=== PATIENT | female | born 1970 | race Two or more races ===

== ENCOUNTER 2021-07-23 07:30 | Day surgery (SDC) | payer MEDICAID ==
[~2021-07-23] VITALS: Ht 162.6 cm; Wt 136.0 kg
[2021-07-23] MEDS ORDERED: fentaNYL/PF 50MCG/1 ML 2ML syringe ONE (07:36)
[2021-07-23] MEDS ORDERED: MIDAZolam 1 MG/ML 5ML VIAL ONE (07:36)
[2021-07-23] MEDS ORDERED: LIDOcaine Viscous 15ml cup ONE (07:36)
[2021-07-23 07:40] VITALS: BP 162/74
[2021-07-23] MEDS ORDERED: HYDR12.55 PO (08:00)
[2021-07-23] MEDS ORDERED: METF-438 PO (08:01)
[2021-07-23] MEDS ORDERED: LISI40TA13 PO (08:03)
[2021-07-23] MEDS ORDERED: IBUP-1984 PO (08:03)
[2021-07-23] MEDS ORDERED: GLIP5TAB13 PO (08:04)
[2021-07-23] MEDS ORDERED: INSU100I71 SQ (08:05)
[2021-07-23] MEDS ORDERED: AMLO10TA PO (08:06)
[2021-07-23] MEDS ORDERED: ALBU6.7H9 INH (08:07)
[2021-07-23 09:28] VITALS: BP 130/57
[2021-07-23 09:38] VITALS: BP 139/77
[2021-07-23 09:48] VITALS: BP 149/67
[2021-07-23 09:58] VITALS: BP 154/63
== END 2021-07-23 10:28 | disposition home or self-care (01) ==
LOC: GI LAB 07:30
PROVIDERS: ATTEND Internal Medicine Gastroenterology
DX: Z08 Encounter for follow-up examination after completed treatment for malignant neoplasm (principal); K63.5 Polyp of colon; K62.1 Rectal polyp; K63.89 Other specified diseases of intestine; I10 Essential (primary) hypertension; E66.9 Obesity, unspecified; Z68.43 Body mass index [BMI] 50.0-59.9, adult; Z79.899 Other long term (current) drug therapy
CPT/HCPCS: 45385; 99152; 99153; C1773; J2250; J3010; J7040; Z7512; A4620

== ENCOUNTER 2021-08-12 10:51 | Day surgery (SDC) | payer MEDICAID ==
[~2021-08-12] VITALS: Ht 162.6 cm; Wt 136.0 kg
[~2021-08-12 10:51] MED LIST: ALBU6.7H9 INH; AMLO10TA PO; GLIP5TAB13 PO; HYDR12.55 PO; IBUP-1984 PO; INSU100I71 SQ; LISI40TA13 PO; METF-438 PO
[2021-08-12 11:00] VITALS: BP 164/77
[2021-08-12] MEDS ORDERED: fentaNYL/PF 50MCG/1 ML 2ML syringe ONE (11:02)
[2021-08-12] MEDS ORDERED: LIDOcaine Viscous 15ml cup ONE (11:03)
[2021-08-12] MEDS ORDERED: MIDAZolam 1 MG/ML 5ML VIAL ONE (11:03)
[2021-08-12 14:16] VITALS: BP 145/68
[2021-08-12 14:26] VITALS: BP 141/71
[2021-08-12 14:36] VITALS: BP 141/56
[2021-08-12 14:46] VITALS: BP 126/61
== END 2021-08-12 15:15 | disposition home or self-care (01) ==
LOC: GI LAB 10:51
PROVIDERS: ATTEND Internal Medicine Gastroenterology
DX: Z01.818 Encounter for other preprocedural examination (principal); K29.50 Unspecified chronic gastritis without bleeding; K21.00 Gastro-esophageal reflux disease with esophagitis, without bleeding; E66.01 Morbid (severe) obesity due to excess calories; Z68.43 Body mass index [BMI] 50.0-59.9, adult
CPT/HCPCS: 43239; 99152; J2250; J3010; J7030; Z7512; A4620

== ENCOUNTER 2021-09-15 10:55 | Day surgery (SDC) | payer MEDICAID ==
[2021-09-13 15:50] LABS: BASOPHILS # (AUTO) 0.1 X10'3 (0-0.2); BASOPHILS % (AUTO) 1.6 % (0-1); EOSINOPHILS # (AUTO) 0.6 X10'3 (0-0.9); HEMATOCRIT 41.5 % (35.0-45.0); HEMOGLOBIN 13.7 g/dl (12.0-16.0); LYMPHOCYTES # (AUTO) 3.1 X10'3 (1.1-4.8); LYMPHOCYTES % (AUTO) 43.2 % (21-51); MEAN CORPUSCULAR HEMOGLOBIN 27.2 PG (27.0-31.0); MEAN CORPUSCULAR HGB CONC 32.9 g/dL (33.0-36.5); MEAN CORPUSCULAR VOLUME 82.6 FL (78-98); MEAN PLATELET VOLUME 8.2 FL (7.4-10.4); MONOCYTES # (AUTO) 0.6 X10'3 (0-0.9); MONOCYTES % (AUTO) 8.9 % (2-12); NEUTROPHILS # (AUTO) 2.7 X10'3 (1.8-7.7); NEUTROPHILS % (AUTO) 38.3 % (42-75); PLATELET COUNT 218 X10'3 (140-440); RED BLOOD COUNT 5.03 X10'6 (4.20-5.60); RED CELL DISTRIBUTION WIDTH 14.8 % (11.5-14.5); WHITE BLOOD COUNT 7.1 X10'3 (4.5-11.0)
[2021-09-13 16:08] LABS: APTT 30 SECONDS (22-32)
[2021-09-13 16:13] LABS: ALANINE AMINOTRANSFERASE 66 U/L (12-78); ALBUMIN 3.4 G/DL (3.4-5.0); ALBUMIN/GLOBULIN RATIO 0.8 (1.1-1.5); ALKALINE PHOSPHATASE 160 IU/L (46-116); ANION GAP 7 (8-16); ASPARTATE AMINO TRANSFERASE 74 U/L (10-37); BILIRUBIN,TOTAL 0.6 MG/DL (0.1-1.0); BLOOD UREA NITROGEN 5 MG/DL (7-18); BUN/CREATININE RATIO 10.2 (6.6-38.0); CALCIUM 8.6 MG/DL (8.5-10.1); CHLORIDE 103 MMOL/L (99-107); CREATININE 0.49 MG/DL (0.40-0.90); GLUCOSE 218 MG/DL (70-104); POTASSIUM 3.8 MMOL/L (3.5-5.1); SODIUM 137 MMOL/L (135-145); TOTAL CARBON DIOXIDE 26.9 MMOL/L (24-32); TOTAL PROTEIN 7.8 G/DL (6.4-8.2); eGFR > 90 ML/MIN
[2021-09-15] VITALS (11 sets, daily range): BP systolic 109–193; BP diastolic 56–86
[~2021-09-15] VITALS: Ht 162.6 cm; Wt 134.4 kg
[2021-09-15] MEDS ORDERED: normal saline 1,000 ML IV SCH (11:15)
[2021-09-15] MEDS ORDERED: nitroGLYCERIN 0.4mg SUBLingual tab SL PRN ×2 (11:15→14:20)
[2021-09-15] MEDS ORDERED: LORazepam 0.5 MG tablet PO PRN (11:15)
[2021-09-15] MEDS ORDERED: diphenhydrAMINE 25mg capsule PO PRN (11:15)
[2021-09-15] MEDS ORDERED: INSU100I71 SUBCUT (12:08)
[2021-09-15] MEDS ORDERED: fentaNYL/PF 50MCG/1 ML 2ML syringe ONE (12:41)
[2021-09-15] MEDS ORDERED: iohexol 350MG/ML 100ml bottle IV ONE (12:41)
[2021-09-15] MEDS ORDERED: midazolam 1 mg/ML 2ml injection ONE (12:41)
[2021-09-15] MEDS ORDERED: LIDOcaine 1%/PF 5ML 10 MG/ML VIAL ONE (12:57)
[2021-09-15] MEDS ORDERED: enalaprilat dihydrate 2.5mg/2ml vial IV ONE ×2 (13:16→13:21)
[2021-09-15] MEDS ORDERED: nitroGLYCERIN-Tridil 50MG/D5W 250 ML IV ONE (13:16)
[2021-09-15] MEDS ORDERED: hydrALAZINE 20mg/ml inj. IV ONE ×2 (13:26→13:43)
[2021-09-15] MEDS ORDERED: ondansetron/PF 4mg/2ml inj IV PRN (14:15)
[2021-09-15] MEDS ORDERED: amLODIPine 5mg tablet PO SCH (14:15)
[2021-09-15] MEDS ORDERED: lisinopril 20mg tablet PO SCH (14:15)
[2021-09-15] MEDS ORDERED: HYDROcodone/acetaminophen 10/325mg tab PO PRN (14:20)
[2021-09-15] MEDS ORDERED: OXAZEpam 15mg capsule PO PRN (14:20)
[2021-09-15] MEDS ORDERED: HYDROcodone/acetaminophen 5mg/325mg tablet PO PRN (14:20)
[2021-09-15 14:23] LABS: HEMOGLOBIN A1C 7.4 % (4.5-6.2)
== END 2021-09-15 19:30 | disposition home or self-care (01) ==
LOC: SSTAY O 10:55
PROVIDERS: ATTEND Internal Medicine Cardiovascular Disease
DX: R94.39 Abnormal result of other cardiovascular function study (principal); I10 Essential (primary) hypertension; E11.9 Type 2 diabetes mellitus without complications; M19.90 Unspecified osteoarthritis, unspecified site; E78.5 Hyperlipidemia, unspecified; Z98.890 Other specified postprocedural states; Z87.891 Personal history of nicotine dependence; Z79.01 Long term (current) use of anticoagulants; Z79.899 Other long term (current) drug therapy
CPT/HCPCS: 36415; 71046; 80053; 82948; 83036; 83880; 84484; 85025; 85610; 85730; 93005; 93458; 99152; 99153; C1760; C1769; J0360; J1644; J2250; J2405; J3010; J3490; J7030; Q0163; Q9967; A4620; A6258

== ENCOUNTER 2023-08-22 12:01 | Outpatient (CLI) | payer MEDICAID ==
[~2023-08-22 12:01] MED LIST changes: -ALBU6.7H9 INH; -GLIP5TAB13 PO; +GLIP5TAB23 PO; -HYDR12.55 PO; -IBUP-1984 PO; -INSU100I71 SQ; +INSU100I98 SUBCUT
== END 2023-08-22 23:59 | disposition home or self-care (01) ==
LOC: RAD 12:01
PROVIDERS: ATTEND Family Medicine
DX: Z11.1 Encounter for screening for respiratory tuberculosis (principal)
CPT/HCPCS: 71045

== ENCOUNTER 2024-07-08 11:13 | Emergency (ER) | payer MEDICAID ==
[~2024-07-08] VITALS: Ht 162.6 cm; Wt 102.0 kg
[2024-07-08] MEDS ORDERED: PRED10TA23 PO (12:17)
[2024-07-08] MEDS ORDERED: AMOX500C2 PO (12:17)
[2024-07-08 12:30] VITALS: BP 134/86; PULSE 78; RESP 18; TEMP 98.4; O2SAT 98
== END 2024-07-08 12:33 | disposition home or self-care (01) ==
LOC: ER 11:13
DX: H66.92 Otitis media, unspecified, left ear (principal)
CPT/HCPCS: 99283